=== PATIENT | female | born 1935 | race Two or more races ===

== ENCOUNTER 2020-06-23 19:19 | Emergency (ER) | payer OTHER ==
[~2020-06-23] VITALS: Ht 152.4 cm; Wt 50.8 kg
--- NOTE | 2020-06-23 19:25 | NUR ---
PT WAS BIBRA C/O WEAKNESS AND DIARRHEA THAT STARTED TODAY. PT BREATHING EVENINLY AND UNLABORED. PT A&OX4. PT STATES THAT "SHE WAS ACTING ODD TODAY, BUT IT WAS BECAUSE SHE DIDNT SLEEP OR EAT ENOUGH TODAY". PT SKIN WARM AND INTACT. PT ATTACHED TO MONITOR AND POX. PT MADE COMFORTABLE WITH BLANKETS AND CALL LIGHT WITHIN REACH
[2020-06-23 19:52] LABS: BASOPHILS # (AUTO) 0.1 /CMM (0.0-0.2); BASOPHILS % (AUTO) 0.4 % (0.0-2.0); EOSINOPHILS % (AUTO) 1.3 % (0.0-6.0); HEMATOCRIT 30 % (33-45); HEMOGLOBIN 9.6 g/dL (11.5-14.8); LYMPHOCYTES # (AUTO) 1.3 /CMM (0.8-4.8); LYMPHOCYTES % (AUTO) 8.3 % (20.0-44.0); MEAN CORPUSCULAR HGB CONC 32 g/dl (31.0-36.0); MEAN CORPUSCULAR VOLUME 93 fL (82-100); MONOCYTES # (AUTO) 1.7 /CMM (0.1-1.30); MONOCYTES % (AUTO) 10.6 % (2.0-12.0); NEUTROPHILS # (AUTO) 12.5 /CMM (1.8-8.9); NEUTROPHILS % (AUTO) 79.4 % (43.0-81.0); PLATELET COUNT (AUTO) 575 /CMM (150-450); RED BLOOD CELL COUNT(AUTO) 3.23 MIL/uL (4.0-5.2); WHITE BLOOD COUNT (AUTO) 15.7 K/uL (4.3-11.0)
--- NOTE | 2020-06-23 20:10 | NUR ---
URINE COLLECTED AND SENT TO THE LAB.
[2020-06-23 20:19] LABS: CALCIUM, SERUM 9.8 mg/dL (8.5-10.1); CARBON DIOXIDE 29 mmol/L (21-32); CHLORIDE 102 mmol/L (98-107); CREATININE 1.6 mg/dL (0.6-1.3); GLUCOSE 64 mg/dL (74-106); POTASSIUM 4.5 mmol/L (3.5-5.1); SODIUM SERUM 138 mmol/L (136-145); UREA NITROGEN, BLOOD 41 mg/dL (7-18)
--- NOTE | 2020-06-23 20:29 | NUR ---
SPOKE TO DAUGHTER, RAUDEL. PER DAUGHTER, WHEN SHE CALLED THE PT ON THE PHONE, THE PT SOUNDED GARBLED AND NOT ALERT. PER DAUGHTER PT IS VERY ALERT AND WAS ACTING ABNORMALLY. DAUGHTER STATES THAT SHE BELIEVES THAT THE PT MAY HAVE TAKEN TOO MANY NORCO PILLS AND OD'D ON MILK OF MAGNESIA. DR BRYAN MADE AWARE OF DAUGHTER'S CONCERNS
[2020-06-23 20:30] LABS: BILIRUBIN,URINE Negative (NEGATIVE); COLOR,URINE YELLOW (YELLOW); LEUKOCYTE ESTERASE ,URINE Negative (NEGATIVE); NITRITE, URINE Negative (NEGATIVE); PH,URINE 7.5 (5.0-8.0); PROTEIN,URINE Trace mg/dl (NEGATIVE); UGLUCOSE Negative (NEGATIVE); UROBILINOGEN,URINE 0.2 EU/dL (0.2)
[2020-06-23 20:30] LABS: ALANINE AMINOTRANSFERASE 31 U/L (12-78); ALBUMIN 3.1 g/dL (3.4-5.0); ALKALINE PHOSPHATASE 103 U/L (46-116); ASPARTATE AMINOTRANSFERASE 29 U/L (15-37); BILIRUBIN,DIRECT 0.1 mg/dL (0.0-0.2); BILIRUBIN,TOTAL 0.2 mg/dL (0.2-1.0)
--- NOTE | 2020-06-23 20:30 | NUR ---
DAUGHTER, RAUDEL [phone]
[2020-06-23 20:35] LABS: BACTERIA,URINE Rare /HPF (None Seen); RBC,URINE NONE SEEN /HPF (0-2); SQUAMOUS EPITHELIAL CELL,UR Few /HPF (None Seen); WBC,URINE NONE SEEN /HPF (0-3)
--- NOTE | 2020-06-23 20:53 | NUR ---
DAUGHTER ETA 45 MIN
[2020-06-23 21:17] VITALS: BP 151/73
--- NOTE | 2020-06-23 21:43 | NUR ---
Patient discharged to home in stable condition. Written and verbal after care instructions given. Patient verbalizes understanding of instruction. Pt ambulatory with a steady gait. Pt's family arrived to take pt home.
== END 2020-06-23 21:43 | disposition home or self-care (01) ==
LOC: ER 19:22
DX: R53.1 Weakness (principal); R41.82 Altered mental status, unspecified; Z85.43 Personal history of malignant neoplasm of ovary
CPT/HCPCS: 36415; 71045-TC; 80048-TC; 80076-TC; 81001; 84484-TC; 85025-TC

== ENCOUNTER 2020-08-10 19:51 | Emergency (ER) | payer OTHER ==
[~2020-08-10] VITALS: Ht 157.5 cm; Wt 52.2 kg
--- NOTE | 2020-08-10 20:00 | NUR ---
PATIENT CAME TO THE ER BIB FROM HOME C/O LOW BLOOD SUGAR. PATIENT STATES THAT SHE WAS AT HOME WITH HER WHEN SHE HAD SUDDENLY WOKE UP TO A BUNCH OF BEAUTIFUL MEN. PATIENT STATES THAT SHE FOUND OUT HER HAD CALLED 911 AND SHE MAY HAVE PASSED OUT. PATIENT'S BLOOD SUGAR WAS 34 ON SCENE. PATIENT HAD RECEIVED 250ML OF D10 EN ROUTE VIA AMBULANCE. PATIENT IS CURRENTLY AAOX4. NO SOB .BREATHING EVENLY AND UNLABORED ON ROOM AIR .CONNECTED TO THE ROLLER SKATE ASSEMBLER.
--- NOTE | 2020-08-10 20:10 | NUR ---
PATIENT PROVIDED WITH WARM BLANKETS
[2020-08-10] MEDS ORDERED: DEXTROSE 50%-WATER 50 ML DISP.SYRIN ONE (20:20)
--- NOTE | 2020-08-10 20:21 | NUR ---
MD NOGUEIRA AT BEDSIDE.
[2020-08-10] MEDS ORDERED: DEXTROSE 50%-WATER 50 ML DISP.SYRIN IVP ONE (20:30)
[2020-08-10] MEDS ORDERED: Calcium Gluconate 1GM/10ML 4.65 MEQ in IV D5W 50 ML IV ONE ×4 (20:30)
[2020-08-10] MEDS ORDERED: Sodium Chloride 77 MEQ in IV 10% DEXTROSE 1,000 ML IV STA (21:02)
[2020-08-10 21:06] LABS: BASOPHILS # (AUTO) 0.1 /CMM (0.0-0.2); BASOPHILS % (AUTO) 0.7 % (0.0-2.0); EOSINOPHILS % (AUTO) 0.5 % (0.0-6.0); HEMATOCRIT 31 % (33-45); HEMOGLOBIN 10.3 g/dL (11.5-14.8); LYMPHOCYTES % (AUTO) 12.9 % (20.0-44.0); MEAN CORPUSCULAR HGB CONC 33 g/dl (31.0-36.0); MEAN CORPUSCULAR VOLUME 92 fL (82-100); MONOCYTES % (AUTO) 13.1 % (2.0-12.0); NEUTROPHILS # (AUTO) 5.8 /CMM (1.8-8.9); NEUTROPHILS % (AUTO) 72.8 % (43.0-81.0); PLATELET COUNT (AUTO) 332 /CMM (150-450); RED BLOOD CELL COUNT(AUTO) 3.39 MIL/uL (4.0-5.2); WHITE BLOOD COUNT (AUTO) 7.9 K/uL (4.3-11.0)
--- NOTE | 2020-08-10 21:12 | NUR ---
SPOKE WITH PT'S DAUGHTER RAUDEL REGARDING ADMISSION AND FOR MEDICATION LIST. UNKNOWN NAMES OF MEDICATIONS, WILL TRY TO LOOK AND CALL BACK
[2020-08-10] MEDS ORDERED: IV 10% DEXTROSE 1,000 ML IV STA (21:24)
[2020-08-10 21:28] LABS: CALCIUM, SERUM 9.7 mg/dL (8.5-10.1); CARBON DIOXIDE 26 mmol/L (21-32); CHLORIDE 104 mmol/L (98-107); CREATININE 1.8 mg/dL (0.6-1.3); GLUCOSE 158 mg/dL (74-106); POTASSIUM 4.2 mmol/L (3.5-5.1); SODIUM SERUM 139 mmol/L (136-145); UREA NITROGEN, BLOOD 42 mg/dL (7-18)
--- NOTE | 2020-08-10 21:29 | NUR ---
SPOKE WITH VITICULTURIST DIANA ([phone]). GAVE CLINICAL INFORMATION PER REQUEST, POSSIBLE TRANSFER TO [facility], VITICULTURIST WILL CALL BACK WITH MORE INFORMATION
[2020-08-10] MEDS ORDERED: CARV3.122 PO (21:32)
[2020-08-10] MEDS ORDERED: AMLO-213 PO (21:32)
[2020-08-10] MEDS ORDERED: ROSU5TAB PO (21:32)
[2020-08-10] MEDS ORDERED: HYDR12.55 PO (21:32)
[2020-08-10 21:34] LABS: ALANINE AMINOTRANSFERASE 25 U/L (12-78); ALBUMIN 3.1 g/dL (3.4-5.0); ALKALINE PHOSPHATASE 83 U/L (46-116); ASPARTATE AMINOTRANSFERASE 21 U/L (15-37); BILIRUBIN,DIRECT 0.1 mg/dL (0.0-0.2); BILIRUBIN,TOTAL 0.2 mg/dL (0.2-1.0); TOTAL PROTEIN, SERUM 7.4 g/dL (6.4-8.2)
--- NOTE | 2020-08-10 21:36 | NUR ---
PATIENT PROVIDED WITH EGG SALAD SANDWICH AND WATER.
--- NOTE | 2020-08-10 21:45 | NUR ---
ANITA NICHOLS SPEAKING TO GILES NICHOLS.
--- NOTE | 2020-08-10 22:24 | NUR ---
DR. GRAHAM SPEAKING WITH DR. BALLESTEROS [facility]
[2020-08-10 22:51] LABS: BILIRUBIN,URINE NEGATIVE (NEGATIVE); COLOR,URINE YELLOW (YELLOW); LEUKOCYTE ESTERASE ,URINE SMALL (NEGATIVE); NITRITE, URINE NEGATIVE (NEGATIVE); PROTEIN,URINE 30 mg/dl (NEGATIVE); UGLUCOSE 100 MG/DL mg/dL (NEGATIVE); UROBILINOGEN,URINE 0.2 EU/dL (0.2)
--- NOTE | 2020-08-10 22:51 | NUR ---
SPOKE WITH POST ANESTHESIA CARE UNIT NURSE DIANA, PT WILL BE TRANSFERRED TO [facility] PER INSURANCE. CLINICAL INFORMATION FAXED TO [facility] PER REQUEST. WILL CALL BACK WITH TRANSFER INFORMATION
[2020-08-10 22:56] LABS: BACTERIA,URINE Few /HPF (None Seen); RBC,URINE 0-2 /HPF (0-2); SQUAMOUS EPITHELIAL CELL,UR Few /HPF (None Seen)
--- NOTE | 2020-08-11 00:45 | NUR ---
ATTEMPTED TO CONTACT PLATER APPRENTICE DIANA REGARDING TRANSFER INFORMATION. NO ANSWER, LEFT MESSAGE. WILL FOLLOW UP
--- NOTE | 2020-08-11 01:01 | NUR ---
SPOKE WITH GAUGE AND INSTRUMENT INSPECTOR BIANCA, PENDING AMBULANCE TRANSFER. PER BIANCA, [facility]ANCE 0730
--- NOTE | 2020-08-11 01:11 | NUR ---
TRANSFER INFORMATION: PT WILL BE TRANSFERRED TO [facility] PER INSURANCE REQUEST NUMBER FOR REPORT: [phone] NURSE FOR REPORT: [facility] ETA 0500 Addendum: 08/11/20 at 0130 by YVON BED ASSIGNMENT [id number]
--- NOTE | 2020-08-11 03:36 | NUR ---
NOTED HYPERTENSION. DENIES CP/SOB. MD AWARE. PER VERBAL MD ORDER, WILL ADMINISTER 10MG HYDRALAZINE IV AND 10MG LABETALOL IV X1 NOW
--- NOTE | 2020-08-11 03:37 | NUR ---
report given to konrad MONTOYA at [facility] for pilar.
[2020-08-11] MEDS ORDERED: LABETALOL HCL IV 100MG VIAL ONE (03:38)
[2020-08-11] MEDS ORDERED: hydrALAZINE HCL IV 20 MG VIAL ONE (03:38)
[2020-08-11 04:00] VITALS: BP 185/70
[2020-08-11] MEDS ORDERED: LABETALOL 20 MG/4 ML VIAL IV ONE (04:00)
[2020-08-11] MEDS ORDERED: hydrALAZINE HCL IV 20 MG VIAL IV ONE (04:00)
--- NOTE | 2020-08-11 04:01 | NUR ---
TAKEN BY [facility] AND REPORT GIVEN TO AMBULANCE TEAM FOR SAMI.
== END 2020-08-11 04:01 | disposition short-term general hospital (02) ==
LOC: ER 19:52
DX: E11.649 Type 2 diabetes mellitus with hypoglycemia without coma (principal); R68.0 Hypothermia, not associated with low environmental temperature; D64.9 Anemia, unspecified; Z20.822 Contact with and (suspected) exposure to COVID-19; C56.9 Malignant neoplasm of unspecified ovary; Z90.81 Acquired absence of spleen; Z90.49 Acquired absence of other specified parts of digestive tract; Z92.21 Personal history of antineoplastic chemotherapy
CPT/HCPCS: 36415; 71045; 80048; 80076; 81001; 82962 ×7; 83605; 84145; 84484; 85025; 85730; 87040 ×2; 87086; 87426; 93005; 96365; 96366; 96375; 96376; 99291; C9803; J0360; J0610 ×2; J3490 ×3; J7060 ×2

== ENCOUNTER 2022-11-25 18:45 | Inpatient (IN) | payer OTHER ==
[~2022-11-25] VITALS: Ht 149.9 cm; Wt 54.5 kg
[~2022-11-25 18:45] MED LIST: AMLO-213 PO; CARV3.122 PO; HYDR12.55 PO; ROSU5TAB PO
--- NOTE | 2022-11-25 18:55 | NUR ---
[id number] FROM HOME C/O SOB X 2-3 DAYS WORST ON EXERTION WAS AT THE URGENT CARE ADVISED TO GO TO ED TO R/O PE
--- NOTE | 2022-11-25 19:00 | NUR ---
AT BEDSIDE FOR EVAL
--- NOTE | 2022-11-25 19:19 | NUR ---
[facility] () [phone] CELL PHONE. [phone] HOME PHONE.
[2022-11-25 19:29] LABS: BASOPHILS # (AUTO) 0.1 K/uL (0.0-0.2); BASOPHILS % (AUTO) 1.2 % (0.0-2.0); EOSINOPHILS % (AUTO) 4.5 % (0.0-6.0); HEMATOCRIT 29 % (33-45); HEMOGLOBIN 9.7 g/dL (11.5-14.8); LYMPHOCYTES # (AUTO) 0.8 K/uL (0.8-4.8); LYMPHOCYTES % (AUTO) 8.9 % (20.0-44.0); MEAN CORPUSCULAR HGB CONC 33 g/dl (31.0-36.0); MEAN CORPUSCULAR VOLUME 98 fL (82-100); MONOCYTES # (AUTO) 1.3 K/uL (0.1-1.30); MONOCYTES % (AUTO) 14.1 % (2.0-12.0); NEUTROPHILS # (AUTO) 6.7 K/uL (1.8-8.9); NEUTROPHILS % (AUTO) 71.3 % (43.0-81.0); PLATELET COUNT (AUTO) 369 K/uL (150-450); RED BLOOD CELL COUNT(AUTO) 2.99 MIL/uL (4.0-5.2); WHITE BLOOD COUNT (AUTO) 9.5 K/uL (4.3-11.0)
[2022-11-25 19:40] LABS: CALCIUM, SERUM 10.1 mg/dL (8.5-10.1); CARBON DIOXIDE 24 mmol/L (21-32); CHLORIDE 108 mmol/L (98-107); CREATININE 2.7 mg/dL (0.6-1.3); GLUCOSE 138 mg/dL (74-106); POTASSIUM 5.1 mmol/L (3.5-5.1); SODIUM SERUM 141 mmol/L (136-145); UREA NITROGEN, BLOOD 52 mg/dL (7-18)
--- NOTE | 2022-11-25 19:41 | NUR ---
IV ESTABLISHED, [email or web address]
--- NOTE | 2022-11-25 19:42 | NUR ---
RT CALLED FOR BLOOD GAS
--- NOTE | 2022-11-25 19:50 | NUR ---
ALLY 2.7MD IBARRA.
[2022-11-25 19:51] LABS: ALANINE AMINOTRANSFERASE 48 U/L (12-78); ALBUMIN 3.1 g/dL (3.4-5.0); ALKALINE PHOSPHATASE 130 U/L (46-116); ASPARTATE AMINOTRANSFERASE 28 U/L (15-37); BILIRUBIN,DIRECT 0.1 mg/dL (0.0-0.2); BILIRUBIN,TOTAL 0.4 mg/dL (0.2-1.0); TOTAL PROTEIN, SERUM 7.2 g/dL (6.4-8.2)
[2022-11-25] MEDS ORDERED: IOHEXOL-350 100 ML VIAL IV ONE (19:53)
[2022-11-25 19:54] LABS: ABG BASE EXCESS -1.8 mmol/L; ABG PCO2 33.1 mmHg (35.0-45.0); ABG PH 7.437 (7.350-7.450); COHb 0.2 % (0.5-1.5); MetHb 0.2 % (0.0-1.5); O2Hb 91.3 % (94.0-97.0); SITE, ABG Right Radial; VENT MODE, BG Room Air
--- NOTE | 2022-11-25 19:57 | NUR ---
PATIENT SENT TO CT
--- NOTE | 2022-11-25 20:11 | NUR ---
PATIENT RETURNED TO ROOM VIA OLEG
[2022-11-25] MEDS ORDERED: FUROSEMIDE 40 MG/4 ML VIAL IV ONE (20:30)
[2022-11-25] MEDS ORDERED: ASPIRIN 325 MG TABLET PO ONE (20:30)
--- NOTE | 2022-11-25 20:43 | NUR ---
DR VALLEJO ON THE PHONE WITH DR GOINS FOR PEER TO PEER
--- NOTE | 2022-11-25 20:45 | NUR ---
VERBAL AUTHORIZATION FROM BIANCA BEY
[2022-11-25] MEDS ORDERED: LEVO25TA7 PO (21:12)
[2022-11-25] MEDS ORDERED: APIX2.5T PO (21:12)
[2022-11-25] MEDS ORDERED: CLONIDINE HCL 0.1 MG TABLET PO PRN (22:00)
[2022-11-25] MEDS ORDERED: ACETAMINOPHEN 650 MG/20.3 ML UDC PO PRN (22:00)
--- NOTE | 2022-11-25 22:06 | NUR ---
ROOM 108
--- NOTE | 2022-11-25 22:20 | NUR ---
US TECH AT BEDSIDE
--- NOTE | 2022-11-25 23:12 | NUR ---
ROOM 313-2
--- NOTE | 2022-11-25 23:27 | NUR ---
REPORT GIVEN TO ROZINA MACK
--- NOTE | 2022-11-25 23:35 | NUR ---
PATIENT TRANSFERRED TO [facility] ON [facility] GURNEY VIA ACLS PROTOCOL
[2022-11-25 23:45] VITALS: BP 163/69
--- NOTE | 2022-11-25 23:45 | NUR ---
TELE CUSTOMER CARE REPRESENTATIVE INITIAL NOTES RECEIVED PATIENT FROM ER VIA OLEG ACCOMPANIED BY DINING ROOM HELPER AND THE NURSE. DX OF CHF . PT IS ALERT ORIENTED X4, AMBULATORY, WITH O2 AT 2 LITERS VIA NASAL CANULA. NO SIGNS OF ANY ACUTE DISTRESS NOTED. SHE HAS PAST [place] HISTORY OF HYPERTENSION, OVARIAN CANCER AND JUST FINISHED HER CHEMO THERAPY 2 YEARS AGO. PATIENT IS COOPERATIVE, PLEASANT ABLE TO KNOW HER NEEDS. ORIENT HER HOW TO USED THE CALL LIGHT SYSTEM AND ENCOURAGE HER TO USE IF SHE NEEDS HELP OR NEED THE NURSE. SNACKS ALSO SERVED BECAUSE PT MENTIONED THAT SHE'S NOT EATING SINCE 3PM. EDUCATE PATIENT REGARDING HER DX OF CHF AND PT UNDERSTOOD WELL. SINUS NASRIN ON TELE MONITOR. KEPT HER WARM AND COMFORTABLE AT ALL TIMES. BED IN LOW AND LOCK IN POSITION WITH SIDE RAILS X2 UP AND BED ALARM SET FOR SAFETY. WILL CONTINUE MONITORING.
[2022-11-26] MEDS: AMLODIPINE BESYLATE 10 MG TABLET PO SCH ×2 (00:01→08:57)
--- NOTE | 2022-11-26 00:01 | NUR ---
TELE POLYSOMNOGRAPHIC TECH NOTES NORVASC GIVEN ORDERED. BLOOD PRESSURE 163/69. DENIES ANY DIZZINESS OR ANY DISCOMFORT. PT REQUEST TO HAVE MED TO HELP HER SLEEP AND RELAX. I TOLD HER THAT I WILL CHECK THE DOCTORS ORDER. WILL CONTINUE MONITORING.
[2022-11-26] MEDS: ZOLPIDEM TARTRATE 5 MG TABLET PO PRN ×2 (00:26→22:11)
--- NOTE | 2022-11-26 00:26 | NUR ---
TELE BABY SITTER NOTES AMBIEN GIVEN PO ORDERED AND PER PT REQUESTED. SAFETY PRECAUTION IMPLEMENTED AND OBSERVED. TELE SINUS NASRIN PER MONITOR.
[2022-11-26 04:00] VITALS: BP_SYST 132; BP_SYST 138; BP_DIAS 48
[2022-11-26 05:51] LABS: BASOPHILS # (AUTO) 0.1 K/uL (0.0-0.2); BASOPHILS % (AUTO) 1.1 % (0.0-2.0); EOSINOPHILS % (AUTO) 6.1 % (0.0-6.0); HEMATOCRIT 28 % (33-45); HEMOGLOBIN 9.2 g/dL (11.5-14.8); LYMPHOCYTES # (AUTO) 0.9 K/uL (0.8-4.8); LYMPHOCYTES % (AUTO) 9.3 % (20.0-44.0); MEAN CORPUSCULAR HGB CONC 33 g/dl (31.0-36.0); MEAN CORPUSCULAR VOLUME 98 fL (82-100); MONOCYTES # (AUTO) 1.7 K/uL (0.1-1.30); MONOCYTES % (AUTO) 17.8 % (2.0-12.0); NEUTROPHILS # (AUTO) 6.3 K/uL (1.8-8.9); NEUTROPHILS % (AUTO) 65.7 % (43.0-81.0); PLATELET COUNT (AUTO) 355 K/uL (150-450); RED BLOOD CELL COUNT(AUTO) 2.86 MIL/uL (4.0-5.2); WHITE BLOOD COUNT (AUTO) 9.6 K/uL (4.3-11.0)
[2022-11-26 06:07] LABS: CALCIUM, SERUM 9.9 mg/dL (8.5-10.1); CARBON DIOXIDE 24 mmol/L (21-32); CHLORIDE 108 mmol/L (98-107); CREATININE 2.5 mg/dL (0.6-1.3); GLUCOSE 87 mg/dL (74-106); POTASSIUM 4.6 mmol/L (3.5-5.1); SODIUM SERUM 140 mmol/L (136-145); UREA NITROGEN, BLOOD 50 mg/dL (7-18)
[2022-11-26 06:16] LABS: ALANINE AMINOTRANSFERASE 42 U/L (12-78); ALBUMIN 2.8 g/dL (3.4-5.0); ALKALINE PHOSPHATASE 120 U/L (46-116); ASPARTATE AMINOTRANSFERASE 22 U/L (15-37); BILIRUBIN,TOTAL 0.4 mg/dL (0.2-1.0); EOSINOPHILS % (MANUAL) 3 % (0-4); LYMPHOCYTES % (MANUAL) 10 % (16-48); MONOCYTES % (MANUAL) 20 % (0-11.0); NEUTROPHILS % (MANUAL) 67 (42-76); TOTAL PROTEIN, SERUM 6.7 g/dL (6.4-8.2)
--- NOTE | 2022-11-26 07:49 | NUR ---
TELE CLOSING NOTES PT RESTING AFTER MORNING CARE DONE. STABLE THROUGHOUT THE NIGHT. TELE SINUS NASRIN . KEPT HER WARM AND COMFORTABLE AT ALL TIMES. PLACE CALL LIGHT AT REACH. ENDORSE TO AM NURSE.
[2022-11-26 08:30] VITALS: BP 149/48
[2022-11-26] MEDS: FUROSEMIDE 40 MG/4 ML VIAL IV SCH ×2 (08:57→18:02)
[2022-11-26] MEDS: LEVOTHYROXINE SODIUM 25 MCG TABLET PO SCH (08:58)
[2022-11-26] MEDS: APIXABAN 2.5 MG TABLET PO SCH ×2 (08:59→18:04)
[2022-11-26] MEDS ORDERED: ANAS1TAB50 PO (10:59)
[2022-11-26 13:00] VITALS: BP 134/40
[2022-11-26] MEDS ORDERED: ROSU10TA29 PO (15:39)
[2022-11-26] MEDS ORDERED: AMIO200T5 PO (15:39)
[2022-11-26] MEDS ORDERED: FURO40TA5 PO (15:39)
[2022-11-26] MEDS ORDERED: CARV25TA2 PO (15:39)
[2022-11-26] MEDS ORDERED: CHOL100043 PO (15:43)
[2022-11-26] MEDS ORDERED: MULT-447 PO (15:43)
[2022-11-26 17:30] VITALS: BP 135/52
--- NOTE | 2022-11-26 18:00 | NUR ---
pt. stable.up often to commode.pt. upset with dtr.andrae and does not want nurse to give info to dtr.when she called.
--- NOTE | 2022-11-26 19:50 | NUR ---
ENVIRONMENTAL LAW PROFESSOR NOTES RECEIVED ON BED ON HIGH FOWLERS POSITION,A/O X4,VERBALIZED NEEDS,AMBULATE WITH STEADY GAIT.WITH SALINE LOCK LEFT WRIST INTACT AND PATENT.NO CHEST PAIN AT THE MOMENT.CALL LIGHT IN REACH,NEEDS ANTICIPATED.
[2022-11-26 20:00] VITALS: BP 154/42
[2022-11-26] MEDS ORDERED: ALPRAZOLAM 0.25 MG TABLET PO PRN (21:30)
[2022-11-26] MEDS: LISINOPRIL (20MG) 20 MG TABLET PO SCH (22:00)
[2022-11-26] MEDS ORDERED: ATORVASTATIN 40 MG TABLET PO SCH (22:00)
--- NOTE | 2022-11-26 22:00 | NUR ---
TRUCK BRACER NOTES C/O INSOMNIA,AMBIEN 5MG PO GIVEN ORDERED AND PER PATIENT REQUEST
[2022-11-27] VITALS: BP 144/52
[2022-11-27 05:00] VITALS: BP 138/60
[2022-11-27] MEDS: LEVOTHYROXINE SODIUM 25 MCG TABLET PO SCH (06:19)
--- NOTE | 2022-11-27 06:34 | NUR ---
TOE FORMER NOTES SLEEP WELL WITH SANTINO.ANXIETY IMPROVED.SALINE LOCK REMAINS PATENT. NO EPISODE OF SOB NOTED.CALL LIGHT IN REACH,NEEDS ATTENDED.
[2022-11-27 06:54] LABS: BASOPHILS % (AUTO) 0.4 % (0.0-2.0); EOSINOPHILS % (AUTO) 5.7 % (0.0-6.0); HEMATOCRIT 29 % (33-45); HEMOGLOBIN 9.3 g/dL (11.5-14.8); LYMPHOCYTES # (AUTO) 1.4 K/uL (0.8-4.8); LYMPHOCYTES % (AUTO) 11.6 % (20.0-44.0); MEAN CORPUSCULAR HGB CONC 33 g/dl (31.0-36.0); MEAN CORPUSCULAR VOLUME 97 fL (82-100); MONOCYTES # (AUTO) 1.8 K/uL (0.1-1.30); MONOCYTES % (AUTO) 15.2 % (2.0-12.0); NEUTROPHILS # (AUTO) 7.9 K/uL (1.8-8.9); NEUTROPHILS % (AUTO) 67.1 % (43.0-81.0); PLATELET COUNT (AUTO) 400 K/uL (150-450); RED BLOOD CELL COUNT(AUTO) 2.93 MIL/uL (4.0-5.2); WHITE BLOOD COUNT (AUTO) 11.8 K/uL (4.3-11.0)
--- NOTE | 2022-11-27 07:10 | NUR ---
RN OPENING NOTES RECEIVED PATENT LAYING IN BED AWAKE. PT IS A/OX4 WITH NO ACUTE DISTRESS NOTED AT THIS TIME. ON 3L/MIN VIA NC WITH NO SOB. L WRIST 20G IV INTACT. PATIENT SAFTEY MEASURES IN PLACE, BED AT LOWEST POSITION, CALL LIGHT WITHIN REACH. WILL CONTINUE TO MONITOR.
[2022-11-27 07:14] LABS: IRON, SERUM 13 ug/dl (50-175); TOTAL IRON BINDING CAPACITY 183 ug/dl (250-450)
[2022-11-27 07:15] LABS: CALCIUM, SERUM 9.7 mg/dL (8.5-10.1); CARBON DIOXIDE 25 mmol/L (21-32); CHLORIDE 105 mmol/L (98-107); CREATININE 2.9 mg/dL (0.6-1.3); GLUCOSE 96 mg/dL (74-106); POTASSIUM 4.4 mmol/L (3.5-5.1); SODIUM SERUM 139 mmol/L (136-145); UREA NITROGEN, BLOOD 51 mg/dL (7-18)
[2022-11-27] MEDS ORDERED: LISI20TA30 PO (08:11)
[2022-11-27] MEDS ORDERED: FURO-145 PO (08:12)
[2022-11-27] MEDS: AMLODIPINE BESYLATE 10 MG TABLET PO SCH (08:21)
[2022-11-27] MEDS: LISINOPRIL (20MG) 20 MG TABLET PO SCH (08:21)
[2022-11-27] MEDS: APIXABAN 2.5 MG TABLET PO SCH (08:24)
[2022-11-27] MEDS: FUROSEMIDE 40 MG/4 ML VIAL IV SCH (08:26)
[2022-11-27] MEDS ORDERED: MULTIVIT W/MINERALS 1 TAB TABLET PO SCH (09:00)
[2022-11-27] MEDS ORDERED: AMIODARONE HCL 200 MG TABLET PO SCH (09:00)
[2022-11-27] MEDS ORDERED: CHOLECALCIFEROL 1,000 UNIT TABLET (VIT D3) PO SCH (09:00)
[2022-11-27] MEDS ORDERED: ANASTROZOLE 1 MG TABLET PO SCH (09:00)
[2022-11-27 09:35] VITALS: BP 142/48
--- NOTE | 2022-11-27 11:12 | NUR ---
OIL CHANGE TECHNICIAN NOTE. PATIENT DC AT THIS TIME. PATIENT IS STABLE, A/O X4, NO SIGNS OF SOB OR DISTRESS AT THE MOMENT. ID BAND AND IV REMOVED. PATIENT SIGNED DISCHARGE PPW AND BELONGINGS SIGNED. PATIENT LEFT UNIT VIA WHEELCHAIR BY STAFF. CHARGE NURSE INFORMED.
== END 2022-11-27 11:30 | disposition home or self-care (01) | DRG 291 ==
LOC: ER 19:06 → TELE1 22:23 → TELE 23:17
PROVIDERS: ADMIT Internal Medicine; ATTEND Internal Medicine
DX: I13.0 Hypertensive heart and chronic kidney disease with heart failure and stage 1 through stage 4 chronic kidney disease, or unspecified chronic kidney disease (principal); I50.31 Acute diastolic (congestive) heart failure; N18.30 Chronic kidney disease, stage 3 unspecified; Z20.822 Contact with and (suspected) exposure to COVID-19; Z85.43 Personal history of malignant neoplasm of ovary; Z79.899 Other long term (current) drug therapy; Z98.891 History of uterine scar from previous surgery; Z90.49 Acquired absence of other specified parts of digestive tract; Z79.01 Long term (current) use of anticoagulants; E03.9 Hypothyroidism, unspecified; I48.91 Unspecified atrial fibrillation; D53.9 Nutritional anemia, unspecified
CPT/HCPCS: 36415; 36600; 71045-TC; 76770-TC; 80048-TC; 80053-TC; 80076-TC; 82803-TC; 83540-TC; 83880; 84443-TC; 84484-TC; 85025-TC; 87081-TC; 93307-TC; 97116-TC; 97530-TC; C9803; G0378; J1940; Q9967